=== PATIENT | female | born 1990 | race Caucasian/White ===

== ENCOUNTER 2021-08-02 18:45 | Emergency (ER) | payer MEDICAID, OTHER ==
[~2021-08-02] VITALS: Ht 165.1 cm; Wt 54.4 kg
[2021-08-02 19:21] VITALS: BP 107/68
[2021-08-02] MEDS ORDERED: VALA100026 PO (19:40)
[2021-08-02] MEDS ORDERED: TRIA15CR2 TP (19:40)
[2021-08-02] MEDS ORDERED: DIPH25TA62 PO (19:42)
--- NOTE | 2021-08-02 19:57 | NUR ---
Patient discharged to home in stable condition. Written and verbal after care instructions given. Patient verbalizes understanding of instruction. Pt ambulatory with a steady gait
== END 2021-08-02 19:57 | disposition home or self-care (01) ==
LOC: ER 18:49
DX: R21 Rash and other nonspecific skin eruption (principal); F43.10 Post-traumatic stress disorder, unspecified; F31.9 Bipolar disorder, unspecified; Z59.00 Homelessness unspecified; Z79.899 Other long term (current) drug therapy